=== PATIENT | female | born 1950 | race Caucasian/White ===

== ENCOUNTER 2016-03-21 14:49 | Emergency (ER) | payer OTHER ==
[2016-03-21 15:07] VITALS: BP 128/84
--- NOTE | 2016-03-21 16:40 | RAD ---
INDICATION: Cough and wheezing x5 days COMPARISON: Chest x-ray dated September 27, 2002 TECHNIQUE: PA and lateral views of the chest were obtained. FINDINGS: The heart and mediastinum are normal in size and contour. The lungs are grossly clear. There is no evidence of large pleural effusion. Visualized bones are normal for the patient's age. There is no radiographic evidence of free air beneath the diaphragm IMPRESSION: No radiographic evidence of acute cardiopulmonary disease.
--- NOTE | 2016-03-21 17:09 | UC ---
Throat Pain/Nasal [place] HPI - HPI Summary HPI Summary: THREE WEEKS OF COUGH CONGESTION, SORE THROAT, ONE WEEK OF WORSENING COUGH, SORE THROAT, SWOLLEN LYMPH NODES, WHEEZING COUGH. - History of Current Complaint Chief Complaint: UCRespiratory Stated Complaint: COUGH,FATIGUE Time Seen by Provider: 03/21/16 15:34 Hx Obtained From: Patient, Family/Mine Motor [employer] Onset/Duration: Gradual Onset, Lasting Days, Still Present Severity: Moderate Cough: Productive Associated Signs & Symptoms: Positive: Wheezing, Hoarseness, Sinus Discomfort, Nasal Discharge, Fever - RESOLVED - Epiglottits Risk Factors Epiglottis Risk Factors: Negative - Allergies/Home Medications Allergies/Adverse Reactions: Allergies Allergy/AdvReac Type Severity Reaction Status Date / Time No Known Allergies Allergy Verified 03/08/13 13:13 Home Medications: Home Medications Pseudoephedrine-Guaifenesin [Mucinex D 60-600 mg] 1 tab PO 03/21/16 [History] PMH/Surg Hx/FS Hx/Imm Hx Previously Healthy: Yes Endocrine History Of: Denies: Diabetes, Thyroid Disease Cardiovascular History Of: Denies: Cardiac Disorders, Hypertension, Pacemaker/ICD Respiratory History Of: Denies: COPD, Asthma GI/ History Of: Denies: Ulcer Cancer History Of: Denies: Breast Cancer - Surgical History Surgical History: None Surgery Procedure, Year, and Place: HERNIA REPAIR 1951,TONSILS 1969,LYMPH NODE REMOVAL 1982,R KNEE ARTHROSCOPY 1999 - Family History Known Family History: Negative: Respiratory Disease - Social History Occupation: Employed Full-time Lives: With Family Alcohol Use: Daily Substance Use Type: None Smoking Status (MU): Former Smoker Review of Systems Constitutional: Fatigue Skin: Negative Eyes: Negative ENT: Sore Throat, Ear Ache, Nasal Discharge Respiratory: Cough Cardiovascular: Negative Gastrointestinal: Negative Genitourinary: Negative Motor: Negative Neurovascular: Negative Musculoskeletal: Negative Neurological: Negative Psychological: Negative All Other Systems Reviewed And Are Negative: Yes Physical Exam Triage Information Reviewed: Yes Appearance: Well-Appearing, No Pain Distress, Well-Nourished Vital Signs: Initial Vital Signs Temp 98.8 F 03/21/16 15:02 Pulse 87 03/21/16 15:02 Resp 18 03/21/16 15:02 BP 128/84 03/21/16 15:02 Pulse Ox 98 03/21/16 15:02 Vital Signs Reviewed: Yes Eye Exam: Normal Eyes: Positive: Conjunctiva Clear ENT: Positive: Hearing grossly normal, Pharyngeal erythema, Nasal congestion, TM bulging, TM dull Dental Exam: Normal Neck exam: Normal Neck: Positive: Supple, Nontender, Enlarged Nodes @ - ANTERIOR CERVICAL CHAIN Respiratory: Positive: Chest non-tender, Normal breath sounds, No respiratory distress, No accessory muscle use, Wheezing. Negative: Lungs clear Cardiovascular Exam: Normal Cardiovascular: Positive: RRR, No Murmur, Pulses Normal Abdominal Exam: Normal Abdomen Description: Positive: Nontender, No Organomegaly Musculoskeletal Exam: Normal Neurological Exam: Normal Psychological Exam: Normal Psychological: Positive: Normal Response To Family Skin Exam: Normal Throat Pain/Nasal Course/Dx - Differential Dx/Diagnosis Differential Diagnosis/HQI/PQRI: Pharyngitis, Sinusitis, URI Provider Diagnoses: SINUSITIS. BRONCHITIS Discharge - Discharge Plan Condition: Stable Disposition: HOME Prescriptions: Albuterol HFA INHALER* [Ventolin HFA Inhaler*] 1 - 2 puff INH Q6H PRN #1 mdi PRN Reason: Wheezing DOXYcycline CAP(*) [DOXYcycline 100MG CAP(*)] 100 mg PO BID #20 cap Patient Education Materials: Sinusitis (ED), Upper Respiratory Infection (ED) Referrals: Angeline Meeks MD [Primary Care Provider] -
[2016-03-21] MEDS ORDERED: Albuterol HFA INHALER* 8 gm MDI INH ONE (17:17)
[2016-03-21] MEDS: DOXYcycline CAP(*) 100 MG PO ONE ×2 (17:18→17:19)
[2016-03-21] MEDS: Albuterol HFA INHALER* 8 gm MDI INH ONE ×2 (17:18→17:19)
== END 2016-03-21 17:30 | disposition home or self-care (01) ==
LOC: UCEAST 14:49
DX: J32.9 Chronic sinusitis, unspecified (principal); J40 Bronchitis, not specified as acute or chronic; Z87.891 Personal history of nicotine dependence
CPT/HCPCS: 71020; 99212; A9270-GY; G0463